=== PATIENT | female | born 1990 | race Caucasian/White ===

== ENCOUNTER → 2019-01-10 | Outpatient (CLI) | payer OTHER ==
[~2019-01-10] MED LIST: ACYC800 PO; ALPR.5 PO; CIPR500 PO; CLOT1TC TOP; HYDACE5 PO; IBUP800 PO; OXYACE5T PO; VALA500 PO; Verotin-Gr Cap1 EACH PO
== END | disposition home or self-care (01) ==
LOC: LAB SHORT 15:52 → LAB EV 15:52
DX: H60.392 Other infective otitis externa, left ear (principal)
CPT/HCPCS: 87070; 87205

== ENCOUNTER → 2019-06-11 | Outpatient (CLI) | payer OTHER ==
[2019-06-14 02:06] LABS: CHLAMYDIA TRACHOMATIS, NAA Negative (Negative); NEISSERIA GONORRHOEAE, NAA Negative (Negative)
== END | disposition home or self-care (01) ==
LOC: LAB 11:32 → LAB SHORT 11:32
PROVIDERS: Obstetrics & Gynecology
DX: Z01.419 Encounter for gynecological examination (general) (routine) without abnormal findings (principal); Z11.3 Encounter for screening for infections with a predominantly sexual mode of transmission
CPT/HCPCS: 87491; 87591; G0123

== ENCOUNTER 2019-10-01 17:33 | Emergency (ER) | payer OTHER ==
[~2019-10-01] VITALS: Ht 170.2 cm; Wt 63.5 kg
== END 2019-10-01 20:55 | disposition home or self-care (01) ==
LOC: ER 17:33
DX: J06.9 Acute upper respiratory infection, unspecified (principal); Z88.0 Allergy status to penicillin; Z88.1 Allergy status to other antibiotic agents; Z87.891 Personal history of nicotine dependence
CPT/HCPCS: 87081; 87430; 99283

== ENCOUNTER → 2021-06-21 | Outpatient (CLI) | payer BC ==
[2021-06-22 16:10] LABS: HPV 16 Negative (Negative); HPV 18 Negative (Negative); HPV OTHER HR TYPES Negative (Negative)
== END | disposition home or self-care (01) ==
LOC: LAB SHORT 13:46 → LAB 13:46
PROVIDERS: Obstetrics & Gynecology
DX: Z01.419 Encounter for gynecological examination (general) (routine) without abnormal findings (principal)
CPT/HCPCS: 87624; G0123

== ENCOUNTER 2024-05-18 07:47 | Emergency (ER) | payer BC ==
[~2024-05-18] VITALS: Ht 170.2 cm; Wt 68.0 kg
[2024-05-18 08:41] VITALS: BP 138/62
[2024-05-18] MEDS ORDERED: Ketorolac Tromethamine 15mg Vial IV ONE (09:05)
[2024-05-18] MEDS ORDERED: Acetaminophen 500 MG Tab PO ONE (09:05)
[2024-05-18] MEDS ORDERED: Ketorolac Tromethamine 15mg Vial IM ONE (09:30)
[2024-05-18] MEDS ORDERED: ACET500 PO (10:24)
[2024-05-18] MEDS ORDERED: IBUP600 PO (10:24)
== END 2024-05-18 10:44 | disposition home or self-care (01) ==
LOC: ER 07:47
DX: S90.32XA Contusion of left foot, initial encounter (principal); W18.30XA Fall on same level, unspecified, initial encounter; Z87.891 Personal history of nicotine dependence; Z88.1 Allergy status to other antibiotic agents; Z88.0 Allergy status to penicillin
CPT/HCPCS: 73630; 96372; 99283-25; A9270; J1885